=== PATIENT | female | born 1950 | race Two or more races ===

== ENCOUNTER 2020-06-01 08:46 | Emergency (ER) | payer MEDICARE, OTHER ==
--- NOTE | 2020-06-01 09:21 | EDM.PDOC ---
ED HPI GENERAL MEDICAL PROBLEM - General Chief Complaint: General Stated Complaint: LT BREAST PAIN SENT FROM [facility] Time Seen by Provider: 06/01/20 09:20 - History of Present Illness INITIAL COMMENTS - FREE TEXT/NARRATIVE: 70-year-old female presents the emergency room with left-sided breast and chest pain. This pain has been going on for the last 5 days or so. Patient does not recall any trauma it seems to be aggravated by change in position and using her arm on the left side. The patient runs a daycare center and does not recall any specific trauma but she is picking up kids all the time that will inadvertently hit her with their heads or extremities. Patient has not had a increased cough no breathing difficulties no shortness of breath. Patient has a concerning risk factor of type 2 diabetes under very good control. She does not smoke no prior history of coronary artery disease. Left Thoracic Pain Score (Numeric/FACES): 8 - Related Data Allergies Allergy/AdvReac Type Severity Reaction Status Date / Time codeine Allergy Severe Stomach Verified 06/01/20 08:59 Ache dulaglutide [From Trulicity] Allergy Severe Insomnia Verified 06/01/20 08:59 phenobarbital Allergy Severe Hallucinati Verified 06/01/20 08:59 ons Home Meds: Home Meds Berberine Complex 1 cap PO TIDMEALS 12/13/17 [History] Cholecalciferol (Vitamin D3) [Vitamin D3] 2,000 unit PO DAILY 12/13/17 [History] Glimepiride 6 mg PO QAM 12/13/17 [History] Hydrocodone/Acetaminophen [Hydrocodon-Acetamin 7.5-325/15] 1 dose PO ASDIRECTED PRN 12/13/17 [History] Levothyroxine 25 mg PO MOTUWETH 12/13/17 [History] Levothyroxine 50 mg PO SUFRSA 12/13/17 [History] Magnesium 250 mg PO DAILY 12/13/17 [History] SitaGLIPtin [Januvia] 100 mg PO DAILY 12/13/17 [History] Ubidecarenone [Coq-10] 100 mg PO DAILY 12/13/17 [History] metFORMIN [Glucophage XR] 500 mg PO QID 12/13/17 [History] Past Medical History HEENT History: Reports: Other (See Below) Other HEENT History: wears glasses Cardiovascular History: Reports: None Respiratory History: Reports: None Gastrointestinal History: Reports: Colon Polyp, Diverticulosis, Other (See Below) Genitourinary History: Reports: Other (See Below) Other Genitourinary History: occasional UTI GREETER History: Reports: Musculoskeletal History: Reports: Fracture, Other (See Below) Other Musculoskeletal History: hx of fx toes Neurological History: Reports: None Psychiatric History: Reports: None Endocrine/Metabolic History: Reports: Diabetes, Type II, Hypothyroidism Hematologic History: Reports: None Immunologic History: Reports: None Oncologic (Cancer) History: Reports: Cervix, Colon Dermatologic History: Reports: None - Past Surgical History Head Surgeries/Procedures: Reports: None HEENT Surgical History: Reports: Tonsillectomy GI Surgical History: Reports: Appendectomy, Cholecystectomy, Colon, Colonoscopy Other GI Surgeries/Procedures: colon resection due to malignant polyp- no chemo required Female Surgical History: Reports: Hysterectomy, Salpingo-Oophorectomy, Tubal Ligation Other Female Surgeries/Procedures: hysterectomy due to cervical cancer Oncologic Surgical History: Reports: Other (See Below) Other Oncologic Surgeries/Procedures: Hysterectomy and Colon Resection Social & Family History - Tobacco Use Tobacco Use Status *Q: Never Tobacco User - Recreational Drug Use Recreational Drug Use: No ED ROS GENERAL - Review of Systems Review Of Systems: See Below Constitutional: Reports: No Symptoms HEENT: Reports: No Symptoms Respiratory: Reports: No Symptoms Cardiovascular: Reports: Chest Pain Endocrine: Reports: No Symptoms GI/Abdominal: Reports: No Symptoms ED EXAM, GENERAL - Physical Exam Exam: See Below Exam Limited By: No Limitations General Appearance: Alert, No Apparent Distress Head: Atraumatic, Normocephalic Neck: Normal Inspection, Supple, Non-Tender, Full Range of Motion Respiratory/Chest: No Respiratory Distress, Lungs Clear, Normal Breath Sounds, Other (Breast shows some palpable tenderness without a mass left upper quadrant it is uncertain whether this is coming from breast tissue or chest wall tissue. No other abnormalities noted) Cardiovascular: Regular Rate, Rhythm, No Edema, No Murmur #1 Interpretation EKG Date: 06/01/20 Rhythm: NSR Rate (Beats/Min): 75 [place]: Normal P-Wave: Present QRS: Normal ST-T: Normal QT: Normal Comparison: NA - No Prior EKG EKG Interpretation Comments: Normal EKG Course - Vital Signs Last Recorded V/S: Last Vital Signs Temp 36.4 C 06/01/20 08:55 Pulse 83 06/01/20 08:55 Resp 16 06/01/20 08:55 BP 154/76 H 06/01/20 08:55 Pulse Ox 100 06/01/20 08:55 - Orders/Labs/Meds Orders: Active Orders 24 hr Category Date Time Status EKG 12 Lead [EKG Documentation Completion] [RC] STAT Care 06/01/20 09:22 Active Ang Chest [CT] Stat Exams 06/01/20 11:21 Taken Chest 1V Frontal [CR] Stat Exams 06/01/20 09:44 Taken Sodium Chloride 0.9% [Normal Saline] 100 ml Med 06/01/20 12:15 Active IV ASDIRECTED Sodium Chloride 0.9% [Saline Flush] Med 06/01/20 12:15 Active 10 ml FLUSH ASDIRECTED Medication Orders Sodium Chloride (Normal Saline) 100 mls @ 60 mls/hr IV ASDIRECTED EZRA Sodium Chloride (Sodium Chloride 0.9% 10 Ml Syringe) 10 ml FLUSH ASDIRECTED EZRA Last Admin: 06/01/20 12:17 Dose: 10 ml Documented by: Admin: 06/01/20 12:16 Dose: 10 ml Documented by: IVANA Labs: Laboratory Tests 06/01/20 06/01/20 06/01/20 Range/Units 09:55 09:55 09:55 WBC 5.87 (3.98-10.04) K/mm3 RBC 4.00 (3.98-5.22) M/mm3 Hgb 11.2 (11.2-15.7) gm/dl Hct 34.7 (34.1-44.9) % MCV 86.8 (79.4-94.8) fl MCH 28.0 (25.6-32.2) pg MCHC 32.3 (32.2-35.5) g/dl RDW Std Deviation 46.6 H (36.4-46.3) fL Plt Count 281 (182-369) K/mm3 MPV 8.7 L (9.4-12.3) fl Neut % (Auto) 78.3 H (34.0-71.1) % Lymph % (Auto) 10.9 L (19.3-51.7) % Nolan % (Auto) 9.4 (4.7-12.5) % Eos % (Auto) 1.0 (0.7-5.8) Baso % (Auto) 0.2 (0.1-1.2) % Neut # (Auto) 4.60 (1.56-6.13) K/mm3 Lymph # (Auto) 0.64 L (1.18-3.74) K/mm3 Nolan # (Auto) 0.55 H (0.24-0.36) K/mm3 Eos # (Auto) 0.06 (0.04-0.36) K/mm3 Baso # (Auto) 0.01 (0.01-0.08) K/mm3 PT 10.7 (9.7-12.0) SECONDS INR 1.00 APTT 27.1 (21.7-31.4) SECONDS D-Dimer, Quantitative (0.19-0.50) mg/L Sodium 139 (136-145) mEq/L Potassium 4.4 (3.5-5.1) mEq/L Chloride 103 (98-107) mEq/L Carbon Dioxide 24 (21-32) mEq/L Anion Gap 16.4 H (5-15) BUN 16 (7-18) mg/dL Creatinine 1.1 H (0.55-1.02) mg/dL Est Cr Clr Drug Dosing 39.84 mL/min Estimated GFR (MDRD) 49 (>60) mL/min BUN/Creatinine Ratio 14.5 (14-18) Glucose 184 H (83-115) mg/dL Calcium 8.6 (8.5-10.1) mg/dL Total Bilirubin 0.4 (0.2-1.0) mg/dL AST 11 L (15-37) U/L ALT 21 (14-59) U/L Alkaline Phosphatase 88 (46-116) U/L Troponin I < 0.017 (0.00-0.056) ng/mL Total Protein 6.7 (6.4-8.2) g/dl Albumin 3.5 (3.4-5.0) g/dl Globulin 3.2 gm/dL Albumin/Globulin Ratio 1.1 (1-2) /06/18 Range/Units 09:55 WBC (3.98-10.04) K/mm3 RBC (3.98-5.22) M/mm3 Hgb (11.2-15.7) gm/dl Hct (34.1-44.9) % MCV (79.4-94.8) fl MCH (25.6-32.2) pg MCHC (32.2-35.5) g/dl RDW Std Deviation (36.4-46.3) fL Plt Count (182-369) K/mm3 MPV (9.4-12.3) fl Neut % (Auto) (34.0-71.1) % Lymph % (Auto) (19.3-51.7) % Nolan % (Auto) (4.7-12.5) % Eos % (Auto) (0.7-5.8) Baso % (Auto) (0.1-1.2) % Neut # (Auto) (1.56-6.13) K/mm3 Lymph # (Auto) (1.18-3.74) K/mm3 Nolan # (Auto) (0.24-0.36) K/mm3 Eos # (Auto) (0.04-0.36) K/mm3 Baso # (Auto) (0.01-0.08) K/mm3 PT (9.7-12.0) SECONDS INR APTT (21.7-31.4) SECONDS D-Dimer, Quantitative 0.56 H (0.19-0.50) mg/L Sodium (136-145) mEq/L Potassium (3.5-5.1) mEq/L Chloride (98-107) mEq/L Carbon Dioxide (21-32) mEq/L Anion Gap (5-15) BUN (7-18) mg/dL Creatinine (0.55-1.02) mg/dL Est Cr Clr Drug Dosing mL/min Estimated GFR (MDRD) (>60) mL/min BUN/Creatinine Ratio (14-18) Glucose (83-115) mg/dL Calcium (8.5-10.1) mg/dL Total Bilirubin (0.2-1.0) mg/dL AST (15-37) U/L ALT (14-59) U/L Alkaline Phosphatase (46-116) U/L Troponin I (0.00-0.056) ng/mL Total Protein (6.4-8.2) g/dl Albumin (3.4-5.0) g/dl Globulin gm/dL Albumin/Globulin Ratio (1-2) Meds: Medications Generic Name Dose Route Start Last Admin Trade Name Yancy PRN Reason Stop Dose Admin Sodium Chloride 100 mls @ 60 mls/hr 06/01/20 12:15 Normal Saline IV ASDIRECTED EZRA Sodium Chloride 10 ml 06/01/20 12:15 06/01/20 12:17 Sodium Chloride 0.9% 10 Ml Syringe FLUSH 10 ml ASDIRECTED EZRA Administration Discontinued Medications Generic Name Dose Route Start Last Admin Trade Name Yancy PRN Reason Stop Dose Admin Sodium Chloride 500 mls @ 999 mls/hr 06/01/20 11:22 06/01/20 12:28 Normal Saline IV 06/01/20 11:52 999 mls/hr .BOLUS ONE Administration Iopamidol 100 ml 06/01/20 12:15 06/01/20 12:16 Iopamidol 755 Mg/Ml 100 Ml Bottle IVPUSH 06/01/20 12:16 100 ml ONETIME ONE Administration - Re-Assessments/Exams Free Text/Narrative Re-Assessment/Exam: 06/01/20 11:23 The troponin is negative however D-dimer slightly elevated. Without a certain diagnosis of the cause of her chest pain we will go ahead and pursue a CTA of the chest. 06/01/20 13:01 CTA shows no evidence of pulmonary embolism there is a possibility of pneumobilia however this does not fit the clinical history in any way. At this point we will discharge the patient. Departure - Departure Time of Disposition: 13:02 Disposition: Home, Self-Care 01 Clinical Impression: Chest wall pain, Breast pain, left - Discharge Information Referrals: Sydnee Kent MD [Primary Care Provider] - Forms: ED Department Discharge Additional Instructions: Return to the emergency room with any questions problems or worsening symptoms. Follow-up with Dr. Kent at the end of this next week. Tylenol as needed for discomfort. Sepsis Event Note (ED) - Evaluation Sepsis Screening Result: No Definite Risk - Focused Exam Vital Signs: Vital Signs Temp Pulse Resp BP Pulse Ox 06/01/20 08:55 36.4 C 83 16 154/76 H 100 - My Orders Last 24 Hours: My Active Orders 06/01/20 09:22 EKG 12 Lead [EKG Documentation Completion] [RC] STAT 04/04/21 09:44 Chest 1V Frontal [CR] Stat 06/01/20 11:21 Ang Chest [CT] Stat 06/01/20 12:15 Sodium Chloride 0.9% [Normal Saline] 100 ml IV ASDIRECTED Sodium Chloride 0.9% [Saline Flush] 10 ml FLUSH ASDIRECTED - Assessment/Plan Last 24 Hours: My Active Orders 06/01/20 09:22 EKG 12 Lead [EKG Documentation Completion] [RC] STAT 06/01/20 09:44 Chest 1V Frontal [CR] Stat 06/01/20 11:21 Ang Chest [CT] Stat 06/01/20 12:15 Sodium Chloride 0.9% [Normal Saline] 100 ml IV ASDIRECTED Sodium Chloride 0.9% [Saline Flush] 10 ml FLUSH ASDIRECTED
[2020-06-01] MEDS ORDERED: Sodium Chloride 0.9% 500 ML IV ONE (11:22)
[2020-06-01] MEDS ORDERED: Iopamidol 755 Mg/ML 100 ML Bottle IVPUSH ONE (12:15)
[2020-06-01] MEDS ORDERED: Sodium Chloride 0.9% 100 ML IV SCH (12:15)
[2020-06-01] MEDS: Sodium Chloride 0.9% 10 ML Syringe FLUSH SCH ×2 (12:16→12:17)
--- NOTE | 2020-06-02 07:47 | CT ---
CT chest Technique: Multiple axial sections through the chest were obtained. Intravenous contrast was utilized. Study has been performed as a pulmonary angiogram protocol. Comparison: No prior chest CT is available. Findings: Pulmonary arteries are well opacified. No filling defects are seen to indicate pulmonary embolism. Thoracic aorta shows no aneurysm. No mediastinal or hilar adenopathy is seen. No pericardial thickening is seen. Mild coronary artery calcification is seen. Intrahepatic air is seen which appears to be within the biliary system. Minimal partially visualized scar within the right kidney is seen. Lungs are clear with no acute parenchymal change. No pleural effusions are seen. Bone window settings were reviewed which show scattered degenerative change within the spine. Slight anterior wedging is seen within the lower spine which is most likely old. No acute osseous abnormality is appreciated. Impression: 1. No findings of pulmonary embolism. 2. Other findings as noted above which are believed to be chronic. Nothing acute is appreciated. Diagnostic code #2 I agree with preliminary report from [facility], finalized on 06/01/20, 1:58 PM CDT
--- NOTE | 2020-06-02 08:51 | CR ---
Chest: Portable view of the chest was obtained. Comparison: No prior chest imaging is available. Heart size and mediastinum are normal. Lungs are clear with no acute parenchymal change. Bony structure shows nothing acute. Impression: 1. Nothing acute is seen on portable chest x-ray. Diagnostic code #1
== END 2020-06-01 13:15 | disposition home or self-care (01) ==
LOC: JD.ED 08:46
DX: R07.89 Other chest pain (principal); N64.4 Mastodynia; E11.9 Type 2 diabetes mellitus without complications; E03.9 Hypothyroidism, unspecified; Z79.899 Other long term (current) drug therapy; Z88.5 Allergy status to narcotic agent; Z88.8 Allergy status to other drugs, medicaments and biological substances; Z79.84 Long term (current) use of oral hypoglycemic drugs
CPT/HCPCS: 36415; 71045; 71275; 80053; 84484; 85025; 85379; 85610; 85730; 93005; 99285; J7030; Q9967; 93010; 99284

== ENCOUNTER 2021-08-25 16:51 | Emergency (ER) | payer MEDICARE, OTHER | END 2021-08-25 17:25 | disposition left against medical advice (07) | LOC: JD.ED 16:51 | DX: Z53.21 Procedure and treatment not carried out due to patient leaving prior to being seen by health care provider (principal) | CPT/HCPCS: 93005 ==

== ENCOUNTER 2022-09-28 06:59 | Day surgery (SDC) | payer MEDICARE, OTHER ==
[~2022-09-28 06:59] MED LIST: Lactated Ringers 1,000 ML IV SCH; Sodium Chloride 0.9% 10 ML Syringe FLUSH PRN; Sodium Chloride 0.9% 10 ML Syringe FLUSH SCH
[2022-09-28] MEDS ORDERED: Lidocaine 1% 4 ML ONE (07:41)
[2022-09-28] MEDS ORDERED: Propofol 200 MG/20 ML SDV ONE (07:41)
== END 2022-09-28 09:55 | disposition home or self-care (01) ==
LOC: JD.SDS 06:59
PROVIDERS: ATTEND Specialist
DX: Z12.11 Encounter for screening for malignant neoplasm of colon (principal); K57.30 Diverticulosis of large intestine without perforation or abscess without bleeding; Z85.038 Personal history of other malignant neoplasm of large intestine; I70.90 Unspecified atherosclerosis; M19.90 Unspecified osteoarthritis, unspecified site; J30.9 Allergic rhinitis, unspecified; I65.29 Occlusion and stenosis of unspecified carotid artery; J32.9 Chronic sinusitis, unspecified; E11.22 Type 2 diabetes mellitus with diabetic chronic kidney disease; N18.30 Chronic kidney disease, stage 3 unspecified; I12.9 Hypertensive chronic kidney disease with stage 1 through stage 4 chronic kidney disease, or unspecified chronic kidney disease; E87.1 Hypo-osmolality and hyponatremia; E03.9 Hypothyroidism, unspecified; D72.819 Decreased white blood cell count, unspecified; M81.0 Age-related osteoporosis without current pathological fracture; C53.9 Malignant neoplasm of cervix uteri, unspecified; E11.29 Type 2 diabetes mellitus with other diabetic kidney complication; R80.9 Proteinuria, unspecified; D69.6 Thrombocytopenia, unspecified; E11.65 Type 2 diabetes mellitus with hyperglycemia; G43.909 Migraine, unspecified, not intractable, without status migrainosus; E55.9 Vitamin D deficiency, unspecified; Z88.8 Allergy status to other drugs, medicaments and biological substances; Z88.5 Allergy status to narcotic agent; Z91.09 Other allergy status, other than to drugs and biological substances; Z79.82 Long term (current) use of aspirin; Z79.84 Long term (current) use of oral hypoglycemic drugs; Z79.890 Hormone replacement therapy; Z79.899 Other long term (current) drug therapy; Z90.49 Acquired absence of other specified parts of digestive tract; Z90.710 Acquired absence of both cervix and uterus; Z90.89 Acquired absence of other organs; Z98.51 Tubal ligation status; Z87.891 Personal history of nicotine dependence
CPT/HCPCS: G0105; J2704; J7120; J3490

== ENCOUNTER 2022-11-16 18:01 | Emergency (ER) | payer MEDICARE, OTHER ==
[2022-11-16] MEDS ORDERED: Sodium Chloride 0.9% 1,000 ML IV SCH (19:15)
== END 2022-11-16 19:35 | disposition left against medical advice (07) ==
LOC: JD.ED 18:01
DX: N39.0 Urinary tract infection, site not specified (principal); E11.22 Type 2 diabetes mellitus with diabetic chronic kidney disease; N18.30 Chronic kidney disease, stage 3 unspecified; E03.9 Hypothyroidism, unspecified; Z86.16 Personal history of COVID-19; Z95.5 Presence of coronary angioplasty implant and graft; Z79.84 Long term (current) use of oral hypoglycemic drugs; Z79.899 Other long term (current) drug therapy; Z88.8 Allergy status to other drugs, medicaments and biological substances; Z88.5 Allergy status to narcotic agent
CPT/HCPCS: 99281; 99282

== ENCOUNTER 2022-11-17 07:39 | Inpatient (IN) | payer MEDICARE, OTHER ==
[~2022-11-17 07:39] MED LIST changes: -Lactated Ringers 1,000 ML IV SCH; -Sodium Chloride 0.9% 10 ML Syringe FLUSH SCH
[2022-11-17] MEDS ORDERED: Diltiazem 25 MG/5 ML SDV IVPUSH ONE (07:41)
[2022-11-17] MEDS ORDERED: Sodium Chloride 0.9% 1,000 ML IV SCH ×2 (07:45→09:15)
[2022-11-17] MEDS ORDERED: Diltiazem 125 MG in Sodium Chloride 0.9% 100 ML IV SCH (07:45)
[2022-11-17 08:09] LABS: BASOPHILS PERCENT AUTO 0.1 % (0.0-1.0); HEMATOCRIT 31.5 % (37.0-47.0); HEMOGLOBIN 10.8 gm/dl (12.0-16.0); IMMATURE GRAN ABSOLUTE AUTO 0.06 K/mm3 (0.00-0.05); IMMATURE GRAN PERCENT AUTO 0.9 % (0.0-0.4); LYMPHOCYTES ABSOLUTE AUTO 0.2 K/mm3 (1.0-4.8); LYMPHOCYTES PERCENT AUTO 2.2 % (24.0-44.0); MEAN CORPUSCULAR HEMOGLOBIN 28.6 pg (28.0-32.0); MEAN CORPUSCULAR HGB CONC 34.3 g/dl (32.0-36.0); MEAN CORPUSCULAR VOLUME 83.3 fl (83.0-99.0); MEAN PLATELET VOLUME 9.7 fl (9.4-12.3); MONOCYTES ABSOLUTE AUTO 0.8 K/mm3 (0.0-0.8); MONOCYTES PERCENT AUTO 11.1 % (0.0-8.0); NEUTROPHILS ABSOLUTE AUTO 5.8 K/mm3 (1.8-7.7); NEUTROPHILS PERCENT AUTO 85.7 % (41.0-71.0); PLATELET COUNT,PLT 191 K/mm3 (150-400); RED BLOOD CELL COUNT 3.78 M/mm3 (4.10-5.30); WHITE BLOOD CELL COUNT,WBC 6.75 K/mm3 (3.9-11.3)
[2022-11-17 08:39] LABS: A/G RATIO 0.7 (1-2); ALBUMIN 2.9 g/dl (3.4-5.0); ANION GAP 18.2 (5-15); BILIRUBIN TOTAL 0.5 mg/dL (0.2-1.0); BUN/CREATININE RATIO 22.1 (14-18); CALCIUM 8.9 mg/dL (8.5-10.1); CREATININE 1.4 mg/dL (0.55-1.02); EST CRCL DRUG DOSING (CG) 28.7 mL/min; POTASSIUM,K 4.2 mEq/L (3.5-5.1); PROTEIN TOTAL,TP 7.3 g/dl (6.4-8.2)
[2022-11-17 09:26] LABS: APPEARANCE,URINE SLT CLOUDY (Clear); BILIRUBIN,URINE NEGATIVE (Negative); COLOR,URINE YELLOW (Yellow); GLUCOSE,URINE 2+ (Negative); KETONES,URINE TRACE (Negative); LEUKOCYTE ESTERASE,URINE TRACE (Negative); NITRITE,URINE NEGATIVE (Negative); OCCULT BLOOD,URINE TRACE-LYSED (Negative); PROTEIN,URINE 2+ (Negative); UROBILINOGEN,URINE 0.2 (0.2-1.0)
[2022-11-17] MEDS ORDERED: cefTRIAXone 2 GM in Sodium Chloride 0.9% 100 ML IV ONE (09:27)
[2022-11-17 09:35] LABS: LACTIC ACID 1.1 mmol/L (0.4-2.0)
[2022-11-17 09:47] LABS: BACTERIA,URINE MODERATE /hpf (FEW); HYALINE CASTS,URINE 0-5 /lpf (0-5); MUCUS,URINE NOT SEEN /hpf (FEW); RBC,URINE 0-5 /hpf (0-5); SQUAMOUS EPITHELIAL CELLS,UR 0-5 /hpf (0-5)
[2022-11-17] MEDS ORDERED: Insulin Glargine,Human Rec. Analog 100 Units/ML 3 ML Pen SUBCUT STA (11:32)
[2022-11-17] MEDS ORDERED: Ondansetron 4 MG/2 ML SDV IV PRN (11:35)
[2022-11-17] MEDS ORDERED: Acetaminophen 325 MG Tab PO PRN (11:35)
[2022-11-17] MEDS ORDERED: Sodium Chloride 0.9% 1,000 ML IV ONE (11:58)
[2022-11-17] MEDS: Metoprolol Tartrate 25 MG Tab PO SCH ×2 (12:34→17:42)
[2022-11-17] MEDS: Insulin Lispro 100 Unit/ML 3 ML KwikPen SUBCUT SCH ×3 (12:36→21:37)
[2022-11-17 16:35] LABS: CALCIUM 8.1 mg/dL (8.5-10.1); CREATININE 1.3 mg/dL (0.55-1.02); EST CRCL DRUG DOSING (CG) 30.91 mL/min
[2022-11-17] MEDS: Apixaban 5 MG Tab PO SCH (21:35)
[2022-11-18] MEDS: Metoprolol Tartrate 25 MG Tab PO SCH ×4 (00:08→18:17)
[2022-11-18 05:54] LABS: HEMATOCRIT 25.5 % (37.0-47.0); MEAN CORPUSCULAR HEMOGLOBIN 28.9 pg (28.0-32.0); MEAN CORPUSCULAR HGB CONC 34.5 g/dl (32.0-36.0); MEAN CORPUSCULAR VOLUME 83.6 fl (83.0-99.0); MEAN PLATELET VOLUME 9.9 fl (9.4-12.3); PLATELET COUNT,PLT 214 K/mm3 (150-400); RED BLOOD CELL COUNT 3.05 M/mm3 (4.10-5.30); WHITE BLOOD CELL COUNT,WBC 6.94 K/mm3 (3.9-11.3)
[2022-11-18 06:03] LABS: A/G RATIO 0.6 (1-2); ALBUMIN 2.4 g/dl (3.4-5.0); ANION GAP 15.7 (5-15); BILIRUBIN TOTAL 0.3 mg/dL (0.2-1.0); BUN/CREATININE RATIO 21.7 (14-18); C-REACTIVE PROTEIN 8.4 mg/dL (<1.0); CALCIUM 8.4 mg/dL (8.5-10.1); CREATININE 1.2 mg/dL (0.55-1.02); EST CRCL DRUG DOSING (CG) 35.16 mL/min; MAGNESIUM 1.9 mg/dL (1.8-2.4); POTASSIUM,K 3.7 mEq/L (3.5-5.1); PROTEIN TOTAL,TP 6.2 g/dl (6.4-8.2)
[2022-11-18 06:06] LABS: HEMOGLOBIN 8.8 gm/dl (12.0-16.0)
[2022-11-18] MEDS: Insulin Lispro 100 Unit/ML 3 ML KwikPen SUBCUT SCH ×4 (06:32→20:01)
[2022-11-18] MEDS: Levothyroxine 50 MCG Tab PO SCH (07:03)
[2022-11-18] MEDS ORDERED: Insulin Glargine,Human Rec. Analog 100 Units/ML 3 ML Pen SUBCUT SCH ×3 (09:00)
[2022-11-18] MEDS: Apixaban 5 MG Tab PO SCH ×2 (09:57→20:01)
[2022-11-18] MEDS: cefTRIAXone 2 GM in Sodium Chloride 0.9% 100 ML IV SCH (09:58)
[2022-11-19] MEDS: Metoprolol Tartrate 25 MG Tab PO SCH ×2 (00:13→05:57)
[2022-11-19 05:31] LABS: HEMATOCRIT 25.3 % (37.0-47.0); HEMOGLOBIN 8.7 gm/dl (12.0-16.0); MEAN CORPUSCULAR HEMOGLOBIN 28.2 pg (28.0-32.0); MEAN CORPUSCULAR HGB CONC 34.4 g/dl (32.0-36.0); MEAN CORPUSCULAR VOLUME 82.1 fl (83.0-99.0); MEAN PLATELET VOLUME 10.2 fl (9.4-12.3); PLATELET COUNT,PLT 209 K/mm3 (150-400); RED BLOOD CELL COUNT 3.08 M/mm3 (4.10-5.30); WHITE BLOOD CELL COUNT,WBC 5.59 K/mm3 (3.9-11.3)
[2022-11-19 05:35] LABS: A/G RATIO 0.6 (1-2); ALBUMIN 2.3 g/dl (3.4-5.0); ANION GAP 12.6 (5-15); BILIRUBIN TOTAL 0.4 mg/dL (0.2-1.0); C-REACTIVE PROTEIN 6.3 mg/dL (<1.0); CALCIUM 8.1 mg/dL (8.5-10.1); EST CRCL DRUG DOSING (CG) 41.94 mL/min; MAGNESIUM 1.7 mg/dL (1.8-2.4); POTASSIUM,K 3.6 mEq/L (3.5-5.1); PROTEIN TOTAL,TP 5.9 g/dl (6.4-8.2)
[2022-11-19] MEDS: Levothyroxine 50 MCG Tab PO SCH (05:57)
[2022-11-19] MEDS: Insulin Lispro 100 Unit/ML 3 ML KwikPen SUBCUT SCH (07:28)
[2022-11-19] MEDS: Apixaban 5 MG Tab PO SCH (08:41)
[2022-11-19] MEDS: cefTRIAXone 2 GM in Sodium Chloride 0.9% 100 ML IV SCH (08:42)
== END 2022-11-19 10:00 | disposition home or self-care (01) | DRG 871 ==
LOC: JD.ED 07:39 → JD.ICU 10:14
PROVIDERS: ADMIT Internal Medicine; ATTEND Internal Medicine
PROC: 3E03329 Introduction of Other Anti-infective into Peripheral Vein, Percutaneous Approach (ICD-10-PCS; principal; 2022-11-17)
PROC: 8E0ZXY6 Isolation (ICD-10-PCS; 2022-11-17)
DX: A41.9 Sepsis, unspecified organism (principal); E11.00 Type 2 diabetes mellitus with hyperosmolarity without nonketotic hyperglycemic-hyperosmolar coma (NKHHC); U07.1 COVID-19; N17.9 Acute kidney failure, unspecified; E87.1 Hypo-osmolality and hyponatremia; N10 Acute pyelonephritis; I48.91 Unspecified atrial fibrillation; R65.20 Severe sepsis without septic shock; E86.0 Dehydration; M19.90 Unspecified osteoarthritis, unspecified site; M06.9 Rheumatoid arthritis, unspecified; E11.22 Type 2 diabetes mellitus with diabetic chronic kidney disease; N18.30 Chronic kidney disease, stage 3 unspecified; I35.8 Other nonrheumatic aortic valve disorders; M81.0 Age-related osteoporosis without current pathological fracture; E11.65 Type 2 diabetes mellitus with hyperglycemia; K57.30 Diverticulosis of large intestine without perforation or abscess without bleeding; Z88.8 Allergy status to other drugs, medicaments and biological substances; Z88.5 Allergy status to narcotic agent; E03.9 Hypothyroidism, unspecified; Z79.82 Long term (current) use of aspirin; Z79.84 Long term (current) use of oral hypoglycemic drugs; Z79.2 Long term (current) use of antibiotics; Z87.81 Personal history of (healed) traumatic fracture; Z90.49 Acquired absence of other specified parts of digestive tract; Z90.710 Acquired absence of both cervix and uterus; Z90.79 Acquired absence of other genital organ(s); Z90.722 Acquired absence of ovaries, bilateral; Z98.51 Tubal ligation status; Z90.89 Acquired absence of other organs; Z79.890 Hormone replacement therapy; Z98.890 Other specified postprocedural states; Z86.010 Personal history of colon polyps; Z79.899 Other long term (current) drug therapy
CPT/HCPCS: 36415; 71045; 71045-26; 74176; 74176-26; 80048; 80053; 81001; 82009; 82800; 82947; 83605; 83735; 83930; 84443; 84484; 85025; 85027; 86140; 87040; 87086; 93005; 96361; 96365; 96375; 99285; 99285-25; A9270-GY; J0696; J1815; J1815-GY; J3475; J3490; J7030

== ENCOUNTER 2024-03-06 10:44 | Emergency (ER) | payer MEDICARE, OTHER ==
[2024-03-06 11:55] LABS: BASOPHILS PERCENT AUTO 0.2 % (0.0-1.0); EOSINOPHILS PERCENT AUTO 0.8 % (0.0-6.0); HEMATOCRIT 32.1 % (37.0-47.0); HEMOGLOBIN 10.5 gm/dl (12.0-16.0); IMMATURE GRAN ABSOLUTE AUTO 0.02 K/mm3 (0.00-0.05); IMMATURE GRAN PERCENT AUTO 0.4 % (0.0-0.4); LYMPHOCYTES ABSOLUTE AUTO 0.6 K/mm3 (1.0-4.8); LYMPHOCYTES PERCENT AUTO 12.8 % (24.0-44.0); MEAN CORPUSCULAR HEMOGLOBIN 29.7 pg (28.0-32.0); MEAN CORPUSCULAR HGB CONC 32.7 g/dl (32.0-36.0); MEAN CORPUSCULAR VOLUME 90.7 fl (83.0-99.0); MEAN PLATELET VOLUME 9.3 fl (9.4-12.3); MONOCYTES ABSOLUTE AUTO 0.5 K/mm3 (0.0-0.8); MONOCYTES PERCENT AUTO 10.3 % (0.0-8.0); NEUTROPHILS ABSOLUTE AUTO 3.7 K/mm3 (1.8-7.7); NEUTROPHILS PERCENT AUTO 75.5 % (41.0-71.0); PLATELET COUNT,PLT 234 K/mm3 (150-400); RED BLOOD CELL COUNT 3.54 M/mm3 (4.10-5.30); WHITE BLOOD CELL COUNT,WBC 4.86 K/mm3 (3.9-11.3)
[2024-03-06 12:26] LABS: A/G RATIO 0.9 (1-2); ALBUMIN 3.3 g/dl (3.4-5.0); ANION GAP 13.4 (5-15); BILIRUBIN TOTAL 0.4 mg/dL (0.2-1.0); BUN/CREATININE RATIO 15.7 (14-18); C-REACTIVE PROTEIN 1.02 mg/dL (<0.30); CALCIUM 8.6 mg/dL (8.5-10.1); CREATININE 1.4 mg/dL (0.55-1.02); EST CRCL DRUG DOSING (CG) 29.98 mL/min; POTASSIUM,K 4.4 mEq/L (3.5-5.1); PROTEIN TOTAL,TP 6.9 g/dl (6.4-8.2)
[2024-03-06] MEDS: Sodium Chloride 0.9% 10 ML Syringe FLUSH ONE (13:16)
[2024-03-06] MEDS: Iopamidol 612 MG/ML 100 ML Bottle IVPUSH ONE (13:16)
[2024-03-06] MEDS: Sodium Chloride 0.9% 500 ML IV ONE (13:18)
== END 2024-03-06 14:30 | disposition home or self-care (01) ==
LOC: JD.ED 10:44
DX: R04.2 Hemoptysis (principal); I48.91 Unspecified atrial fibrillation; I25.10 Atherosclerotic heart disease of native coronary artery without angina pectoris; E11.22 Type 2 diabetes mellitus with diabetic chronic kidney disease; N18.30 Chronic kidney disease, stage 3 unspecified; E03.9 Hypothyroidism, unspecified; Z90.49 Acquired absence of other specified parts of digestive tract; Z90.710 Acquired absence of both cervix and uterus; Z86.16 Personal history of COVID-19; Z88.5 Allergy status to narcotic agent; Z88.8 Allergy status to other drugs, medicaments and biological substances; Z79.01 Long term (current) use of anticoagulants; Z79.890 Hormone replacement therapy; Z79.899 Other long term (current) drug therapy
CPT/HCPCS: 36415; 71260; 80053; 85025; 86140; 96360; 99285; J7030; Q9967; 99283

== ENCOUNTER 2024-09-03 09:18 | Emergency (ER) | payer MEDICARE, OTHER ==
[2024-09-03 10:29] LABS: BASOPHILS ABSOLUTE AUTO 0.0 K/mm3 (0.0-0.2); BASOPHILS PERCENT AUTO 0.0 % (0.0-1.0); EOSINOPHILS ABSOLUTE AUTO 0.1 K/mm3 (0.0-0.4); EOSINOPHILS PERCENT AUTO 1.0 % (0.0-6.0); IMMATURE GRAN ABSOLUTE AUTO 0.03 K/mm3 (0.00-0.05); IMMATURE GRAN PERCENT AUTO 0.5 % (0.0-0.4); LYMPHOCYTES ABSOLUTE AUTO 0.6 K/mm3 (1.0-4.8); LYMPHOCYTES PERCENT AUTO 9.8 % (24.0-44.0); MEAN PLATELET VOLUME 9.6 fl (9.4-12.3); MONOCYTES ABSOLUTE AUTO 0.5 K/mm3 (0.0-0.8); MONOCYTES PERCENT AUTO 9.1 % (0.0-8.0); NEUTROPHILS ABSOLUTE AUTO 4.6 K/mm3 (1.8-7.7); NEUTROPHILS PERCENT AUTO 79.6 % (41.0-71.0); NRBC ABSOLUTE 0.00 (0.00-0.02); NRBC PERCENT 0.0 % (0.0-0.2); PLATELET COUNT,PLT 174 K/mm3 (150-400); RED BLOOD CELL COUNT 3.55 M/mm3 (4.10-5.30); WHITE BLOOD CELL COUNT,WBC 5.72 K/mm3 (3.9-11.3)
[2024-09-03 10:47] LABS: INR 1.11
[2024-09-03 10:50] LABS: A/G RATIO 0.9 (1-2); ALANINE AMINOTRANSFERASE,ALT 21.0 U/L (14-59); ASPARTATE AMNIOTRANSFERASE,AST 15.0 U/L (15-37); BILIRUBIN TOTAL 0.6 mg/dL (0.2-1.0); BLOOD UREA NITROGEN,BUN 22.0 mg/dL (7-18); CARBON DIOXIDE,CO2 28.0 mEq/L (21-32); CHLORIDE,CL 101.0 mEq/L (98-107); CREATININE 1.2 mg/dL (0.55-1.02); EST CRCL DRUG DOSING (CG) 34.98 mL/min; ESTIMATED GFR 47.0 mL/min (>60); GLUCOSE RANDOM 245.0 mg/dL (70-99); POTASSIUM,K 4.3 mEq/L (3.5-5.1); PROTEIN TOTAL,TP 6.7 g/dl (6.4-8.2); SODIUM,NA 136.0 mEq/L (136-145)
== END 2024-09-03 11:50 | disposition home or self-care (01) ==
LOC: JD.ED 09:18
DX: R04.2 Hemoptysis (principal); E03.9 Hypothyroidism, unspecified; E11.9 Type 2 diabetes mellitus without complications; Z88.8 Allergy status to other drugs, medicaments and biological substances; Z79.890 Hormone replacement therapy; Z79.899 Other long term (current) drug therapy; Z86.16 Personal history of COVID-19; Z90.49 Acquired absence of other specified parts of digestive tract; Z90.710 Acquired absence of both cervix and uterus; Z79.01 Long term (current) use of anticoagulants; Z95.828 Presence of other vascular implants and grafts
CPT/HCPCS: 36415; 80053; 85025; 85610; 99284